=== PATIENT | male | born 1985 | race Caucasian/White ===

== ENCOUNTER 2016-06-02 18:56 | Emergency (ER) | payer SELFPAY ==
[2014-01-11 07:26] VITALS: BMI 24.4
[~2016-06-02 18:56] MED LIST: HYDROCODONE-APA1 TAB PO
== END 2016-06-02 21:30 | disposition home or self-care (01) ==
LOC: D.ER 18:56
DX: S61.452A Open bite of left hand, initial encounter (principal); W55.01XA Bitten by cat, initial encounter; Y93.89 Activity, other specified; Y92.019 Unspecified place in single-family (private) house as the place of occurrence of the external cause; L03.114 Cellulitis of left upper limb

== ENCOUNTER 2016-06-05 16:54 | Emergency (ER) | payer SELFPAY ==
[2014-01-11 07:26] VITALS: BMI 24.4
[2016-06-05 19:08] LABS: BASOPHILS 0.1 % (0.0-2.0); EOSINOPHILS 3.2 % (0-7); HEMATOCRIT 38.5 % (42.0-54.0); HEMOGLOBIN 13.2 g/dL (13.5-17.5); IMMATURE GRANULOCYTES 0.1 % (0-5); LYMPHOCYTES 21.4 % (15-50); MCH 32.2 pg (26.0-34.0); MCHC 34.3 g/dL (31.0-37.0); MCV 93.9 fL (80.0-100.0); MEAN PLATELET VOLUME 9.1 fL (7.4-10.4); MONOCYTES 5.8 % (2-11); NEUTROPHILS 69.4 % (40-80); PLATELET COUNT 257 10x3/uL (130-400); RDW 11.8 % (11.5-14.5); WBC 10.2 10x3/uL (4.8-10.8)
[2016-06-05 19:38] LABS: ALBUMIN 4.2 g/dL (3.4-5.0); ALKALINE PHOSPHATASE 56 U/L (46-116); ALT (SGPT) 21 U/L (10-68); BILIRUBIN - TOTAL 0.48 mg/dL (0.2-1.3); CALC OSMOLALITY 284 mosm/kg (275-300); CALCIUM 9.3 mg/dL (8.5-10.1); CARBON DIOXIDE 29.6 mmol/L (21.0-32.0); CHLORIDE - SERUM 106 mmol/L (98-107); CREATININE - SERUM 0.8 mg/dL (0.6-1.3); GLUCOSE 84 mg/dL (74-106); POTASSIUM - SERUM 3.8 mmol/L (3.5-5.1); PROTEIN - SERUM 7.1 g/dL (6.4-8.2); SODIUM 145 mmol/L (136-145); UREA NITROGEN 5 mg/dL (7-18); eGFR NON AFRICAN AMERICAN > 90 mL/min (90-120)
== END 2016-06-06 00:40 | disposition home or self-care (01) ==
LOC: D.ER 16:54
PROVIDERS: Physician Assistant
DX: L03.114 Cellulitis of left upper limb (principal); S61.452A Open bite of left hand, initial encounter; W55.01XA Bitten by cat, initial encounter; Y93.89 Activity, other specified; Y92.89 Other specified places as the place of occurrence of the external cause

== ENCOUNTER 2016-10-15 14:57 | Emergency (ER) | payer SELFPAY ==
[2014-01-11 07:26] VITALS: BMI 24.4
== END 2016-10-15 22:45 | disposition home or self-care (01) ==
LOC: D.ER 14:57
DX: S06.0X9A Concussion with loss of consciousness of unspecified duration, initial encounter (principal); S01.81XA Laceration without foreign body of other part of head, initial encounter; W19.XXXA Unspecified fall, initial encounter; Y93.89 Activity, other specified; Y92.89 Other specified places as the place of occurrence of the external cause

== ENCOUNTER 2016-12-28 08:28 | Day surgery (SDC) | payer MEDICAID ==
[~2016-12-28] VITALS: Ht 188 cm; Wt 79.4 kg
--- NOTE | ~2016-12-28 | OP ---
PATIENT NAME: VINCENZO BRADEN V MEDICAL RECORD: [id number] :89 LOCATION:[facility] ADMISSION DATE: SURGEON: AIDE SANTIAGO MD DATE OF OPERATION: 12/28/2016 PREOPERATIVE DIAGNOSIS: Right palate lesion. POSTOPERATIVE DIAGNOSIS: Right palate lesion. PROCEDURE: Excision of right palate lesion. SURGEON: Aide Santiago MD ANESTHESIA: General orotracheal. BLOOD LOSS: 1 cc. SPECIMENS: Right palate lesion. COMPLICATIONS: None. DISPOSITION: Recovery stable. DESCRIPTION OF PROCEDURE: He was brought to the operating room and placed in supine position, sedated and intubated by anesthesia. The eyes were taped. Head drape was applied. The table was turned 90 degrees. He was positioned for pharyngoscopy. Nasopharynx, hypopharynx, supraglottic larynx, base of tongue, vallecula, tonsils, pharyngeal wall as well examined, the cords, postcricoid area, all completely unremarkable. He had a large obvious right palate lesion, but no other mucosal lesions were identified in the oral cavity, oropharynx or hypopharynx. A Rossana-Derrick mouth gag was carefully inserted and elevated on a towel on his chest. The palate was examined and palpated. It was normal with the exception of that lesion on the right side. The palate was retracted and a mirror used to examine the nasopharynx. The choanae and eustachian tube orifices and ____ all completely normal. No mucosal lesions. 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 Bleeding was controlled with cautery. The specimen was sent for path. With that complete, there was no bleeding and the field was clean and dry. The Rossana-Derrick mouth gag was let down and removed. He was awakened, extubated, and transported to recovery in good condition. No complications. TRANSINT:[id number] Voice Confirmation ID: [id number] DOCUMENT ID: [id number] AIDE SANTIAGO MD CC: [id number] DICTATION DATE: 12/28/16 1335 [employer]: 12/28/16 1657 [facility] 12/28/16 [facility] [address] [place] [address]
--- NOTE | ~2016-12-28 | HP ---
PATIENT: VINCENZO BRADEN V MEDICAL RECORD: [id number] ACCOUNT: [id number] LOCATION:[facility] : 89 ADMISSION DATE: 12/28/16 HISTORY AND PHYSICAL EXAMINATION Preoperative History and Physical HISTORY OF PRESENT ILLNESS: Vincenzo is 31 years old. He noticed a lesion on the right side of his throat. He is being admitted for excision of oropharyngeal lesion and laryngoscopy. PAST MEDICAL HISTORY: Includes reactive airway disease as a child, seizures as a child, both resolved. PAST SURGICAL HISTORY: Includes hand surgery in 2014; 2013, hernia repair; 2001, mass removed from the left thigh. CURRENT MEDICATIONS: None. ALLERGIES: No known drug allergies. PHYSICAL EXAMINATION: GENERAL: He is healthy-appearing, developmentally normal. FACE: Normal, symmetric, no lesions. EYES: Sclerae and conjunctivae are normal. EARS: Canals and TMs are normal. NOSE: No mass, polyps, or drainage. ORAL CAVITY AND OROPHARYNX: He has got a large papillomatous-appearing lesion on the anterior tonsillar pillar on the right side, over 3 cm in size. I do not see any other lesions. NECK: No masses or adenopathy. CHEST: Clear. CARDIOVASCULAR: Regular rate and rhythm, no murmur. EXTREMITIES: Normal. IMPRESSION: Right palate lesion. PLAN: Excision of the right palate lesion as well as direct laryngoscopy and removal of any other lesions identified at that time. TRANSINT:[id number] Voice Confirmation ID: [id number] DOCUMENT ID: [id number] AIDE NAZARIO MD CC: [id number] DICTATION DATE: 12/25/16 1104 LOG TURNER: 12/25/16 1128 [facility] [id number] [place] [address]
[~2016-12-28 08:28] MED LIST changes: +STRATTERA80 MG PO
[2016-12-28 11:14] VITALS: BP 115/65; Ht 188 cm; Wt 79.4 kg
== END 2016-12-28 16:02 | disposition home or self-care (01) ==
LOC: D.OPS 08:28 → D.PAN 09:15 → D.OPS 10:05 → D.PAN 10:15 → D.OPS 11:00
DX: D10.39 Benign neoplasm of other parts of mouth (principal)

== ENCOUNTER 2017-10-18 14:11 | Emergency (ER) | payer MEDICAID ==
[2016-12-28 11:14] VITALS: BMI 22.5
[2017-10-18 15:16] LABS: BASOPHILS 0.2 % (0-2); EOSINOPHILS 1.1 % (0-7); HEMATOCRIT 42.1 % (42.0-54.0); HEMOGLOBIN 14.8 g/dL (13.5-17.5); IMMATURE GRANULOCYTES 0.2 % (0-5); LYMPHOCYTES 14.2 % (15-50); MCH 31.6 pg (26.0-34.0); MCHC 35.2 g/dL (31.0-37.0); MEAN PLATELET VOLUME 9.2 fL (7.4-10.4); MONOCYTES 6.8 % (2-11); NEUTROPHILS 77.5 % (40-80); RBC 4.68 10x6/uL (4.20-6.10); RDW 12.2 % (11.5-14.5); WBC 11.4 10x3/uL (4.8-10.8)
[2017-10-18 15:17] LABS: PLATELET COUNT 343 10x3/uL (130-400)
[2017-10-18 15:32] LABS: ALBUMIN 4.4 g/dL (3.4-5.0); ALKALINE PHOSPHATASE 82 U/L (46-116); ALT (SGPT) 22 U/L (10-68); BILIRUBIN - TOTAL 0.65 mg/dL (0.2-1.3); CALC OSMOLALITY 276 mosm/kg (275-300); CALCIUM 9.5 mg/dL (8.5-10.1); CARBON DIOXIDE 25.5 mmol/L (21.0-32.0); CHLORIDE - SERUM 103 mmol/L (98-107); GLUCOSE 101 mg/dL (74-106); POTASSIUM - SERUM 3.8 mmol/L (3.5-5.1); PROTEIN - SERUM 7.7 g/dL (6.4-8.2); SODIUM 139 mmol/L (136-145); UREA NITROGEN 9 mg/dL (7-18); eGFR NON AFRICAN AMERICAN > 90 mL/min (90-120)
[2017-10-18 17:05] LABS: APPEARANCE HAZY (CLEAR); BILIRUBIN NEGATIVE (NEGATIVE); COLOR BROWN (YELLOW); GLUCOSE NEGATIVE (NEGATIVE); KETONE LARGE mg/dL (NEGATIVE); NITRITE NEGATIVE (NEGATIVE); PROTEIN NEGATIVE (NEGATIVE); UROBILINOGEN NORMAL (NORMAL)
[2017-10-18 17:06] LABS: BACTERIA MODERATE /hpf (NONE SEEN); RED CELLS - URINE >50 /hpf (0-5); WHITE CELLS - URINE 0-5 /hpf (0-5)
[2017-10-18 17:07] LABS: AMORPHOUS SEDIMENT <1+ /lpf (NONE SEEN)
== END 2017-10-18 18:15 | disposition home or self-care (01) ==
LOC: D.ER 14:11
PROVIDERS: Emergency Medicine
DX: N21.0 Calculus in bladder (principal); F17.200 Nicotine dependence, unspecified, uncomplicated

== ENCOUNTER 2017-11-21 21:15 | Emergency (ER) | payer MEDICAID ==
[~2017-11-21] VITALS: Ht 188 cm; Wt 88.5 kg
[2017-11-21 21:22] VITALS: Ht 188 cm; Wt 88.5 kg
[2017-11-21] MEDS ORDERED: CELEXA20 MG PO (21:32)
[2017-11-21] MEDS ORDERED: INVEGA6 MG/BLIST PO (21:33)
[2017-11-21] MEDS ORDERED: PRILOSEC2.5 MG (21:33)
[2017-11-21 21:50] LABS: BASOPHILS 0.1 % (0-2); EOSINOPHILS 1.7 % (0-7); HEMATOCRIT 37.7 % (42.0-54.0); HEMOGLOBIN 12.9 g/dL (13.5-17.5); IMMATURE GRANULOCYTES 0.4 % (0-5); LYMPHOCYTES 17.9 % (15-50); MCH 31.8 pg (26.0-34.0); MCHC 34.2 g/dL (31.0-37.0); MCV 92.9 fL (80.0-100.0); MEAN PLATELET VOLUME 8.5 fL (7.4-10.4); MONOCYTES 7.5 % (2-11); NEUTROPHILS 72.4 % (40-80); RBC 4.06 10x6/uL (4.20-6.10); RDW 12.3 % (11.5-14.5); WBC 8.4 10x3/uL (4.8-10.8)
[2017-11-21 21:51] LABS: PLATELET COUNT 259 10x3/uL (130-400)
[2017-11-21 22:10] LABS: ALBUMIN 3.7 g/dL (3.4-5.0); ALKALINE PHOSPHATASE 77 U/L (46-116); ALT (SGPT) 16 U/L (10-68); BILIRUBIN - TOTAL 0.33 mg/dL (0.2-1.3); CALC OSMOLALITY 278 mosm/kg (275-300); CALCIUM 8.3 mg/dL (8.5-10.1); CARBON DIOXIDE 27.5 mmol/L (21.0-32.0); CHLORIDE - SERUM 101 mmol/L (98-107); CREATININE - SERUM 0.9 mg/dL (0.6-1.3); SODIUM 137 mmol/L (136-145); UREA NITROGEN 8 mg/dL (7-18); eGFR NON AFRICAN AMERICAN > 90 mL/min (90-120)
[2017-11-21 22:15] LABS: GLUCOSE 218 mg/dL (74-106)
[2017-11-21 22:21] LABS: CKMB 1.4 U/L (0.0-3.6); CREATINE KINASE 302 UL (21-232); MAGNESIUM - SERUM 1.8 mg/dL (1.8-2.4); TROPONIN-I < 0.017 ng/mL (0.000-0.060)
[2017-11-21 22:36] LABS: APPEARANCE CLEAR (CLEAR); BILIRUBIN NEGATIVE (NEGATIVE); COLOR YELLOW (YELLOW); GLUCOSE NEGATIVE (NEGATIVE); KETONE NEGATIVE (NEGATIVE); NITRITE NEGATIVE (NEGATIVE); PROTEIN NEGATIVE (NEGATIVE); UROBILINOGEN NORMAL (NORMAL)
[2017-11-21 22:43] LABS: UDS - AMPHET NEGATIVE QUAL (NEGATIVE); UDS - BARB NEGATIVE QUAL (NEGATIVE); UDS - BENZO NEGATIVE QUAL (NEGATIVE); UDS - COCAINE NEGATIVE QUAL (NEGATIVE); UDS - OPIATE NEGATIVE QUAL (NEGATIVE); UDS - PCP NEGATIVE QUAL (NEGATIVE); UDS - THC POSITIVE QUAL (NEGATIVE)
[2017-11-22 04:41] VITALS: BP 111/74
== END 2017-11-22 04:42 | disposition home or self-care (01) ==
LOC: D.ER 21:15
PROVIDERS: Family Medicine
DX: E87.6 Hypokalemia (principal); F41.9 Anxiety disorder, unspecified; R00.2 Palpitations; F17.200 Nicotine dependence, unspecified, uncomplicated